=== PATIENT | female | born 1970 | race Caucasian/White ===

== ENCOUNTER → 2025-01-25 | Outpatient (CLI) | payer MEDICAID, SELFPAY ==
--- NOTE | 2025-01-25 13:00 | XR_ITS ---
Examination: Screening digital mammography, bilateral Computer aided detection 3-D breast Tomosynthesis, bilateral Date and time of exam: January 25, 2025 1254 hours Compared to mammograms dating to July 12, 2015 Indication: Screening, patient felt a lump in the right breast beginning 2 months ago Technique: Nonmagnified MLO, CC views of the breasts to been obtained, reconstructed from 3-D Tomosynthesis images. R2 computer aided detection program utilized for evaluation of suspicious masses and/or abnormal calcifications. 3-D Tomosynthesis images obtained. Findings: The breasts are heterogeneously dense, which may obscure small masses More numerous microcalcifications upper outer left breast No definite suspicious mass Impression: BI-RADS Category 0: Incomplete: Need additional imaging evaluation Recommend follow-up spot tomographic views right breast at the area of palpable lump Recommend negative indications Spot compression views of microcalcifications upper outer left breast Recommend bilateral breast sonography to complete the workup
== END | disposition home or self-care (01) ==
LOC: CDIM 12:47
PROVIDERS: Referring Provider Student in an Organized Health Care Education/Training Program; Visit Provider Student in an Organized Health Care Education/Training Program
DX: Z12.31 Encounter for screening mammogram for malignant neoplasm of breast (principal); N63.10 Unspecified lump in the right breast, unspecified quadrant; R92.0 Mammographic microcalcification found on diagnostic imaging of breast
CPT/HCPCS: 77063; 77067

== ENCOUNTER → 2025-03-30 | Outpatient (CLI) | payer MEDICAID, SELFPAY ==
--- NOTE | 2025-03-30 | XR_ITS ---
Examination: Diagnostic digital mammography, bilateral Computer aided detection 3-D breast Tomosynthesis, bilateral Date and time of exam: March 30, 2025, 1450 hours INDICATIONS: Palpable lump right breast, microcalcifications upper outer left breast on mammogram January 25, 2025 Technique: Nonmagnified MLO, CC views of the breasts to been obtained, reconstructed from 3-D Tomosynthesis images. R2 computer aided detection program utilized for evaluation of suspicious masses and/or abnormal calcifications. 3-D Tomosynthesis images obtained. Findings: The breasts are heterogeneously dense, which may obscure small masses Probably benign calcifications left breast 6 mm circumscribed nodule at the palpable marker site outer right breast Impression: BI-RADS Category 3: Probably benign findings Recommend 6-month bilateral mammography follow-up, to confirm stability of 6 mm circumscribed nodule outer right breast and stability of probably benign calcifications upper outer left breast.
--- NOTE | 2025-03-30 14:00 | XR_ITS ---
Examination: Breast ultrasound complete, bilateral Date and time of exam: March 11, 2023, 0911 hours INDICATIONS: More numerous microcalcifications outer left breast on mammogram January 25, 2025 Technique: Real-time grayscale ultrasonographic imaging bilateral breasts, including all 4 quadrants as well as nipple retroareolar and axillary regions. Findings: Sonographic images right breast 3:00 nodule 3 x 3 mm lobular margins 10:00 cyst 6 x 4 mm 10:00 cyst with internal echoes 6 x 4 mm Sonographic images left breast 3:00 nodule circumscribed 3 x 3 mm Multiple smaller breast cysts IMPRESSION: BI-RADS Category 2: Benign findings
== END | disposition home or self-care (01) ==
PROVIDERS: PCP Student in an Organized Health Care Education/Training Program; Referring Provider Student in an Organized Health Care Education/Training Program; Visit Provider Student in an Organized Health Care Education/Training Program
DX: R92.333 Mammographic heterogeneous density, bilateral breasts (principal); N63.10 Unspecified lump in the right breast, unspecified quadrant
CPT/HCPCS: 76641; 77062; 77066; G0279